=== PATIENT | female | born 1980 | race Caucasian/White ===

== ENCOUNTER 2017-02-14 22:02 | Emergency (ER) | payer OTHER ==
[~2017-02-14] VITALS: Ht 157.5 cm; Wt 81.6 kg
--- NOTE | 2017-02-14 23:40 | NUR ---
DR WILSON AT BEDSIDE FOR MSE
--- NOTE | 2017-02-15 00:03 | NUR ---
PT BACK FROM CT SCAN; NAD NOTED
[2017-02-15 00:09] LABS: BASOPHILS # (AUTO) 0.1 K/uL (0.0-8.0); BASOPHILS % (AUTO) 0.5 % (0.0-2.0); EOSINOPHILS # (AUTO) 0.1 K/uL (0.0-0.7); EOSINOPHILS % (AUTO) 0.9 % (0.0-7.0); HEMATOCRIT 40.5 % (37-47); HEMOGLOBIN 13.3 G/DL (12.0-16.0); LYMPHOCYTES # (AUTO) 4.1 K/UL (0.8-4.8); LYMPHOCYTES % (AUTO) 33.1 % (20.5-51.5); MEAN CORPUSCULAR HEMOGLOBIN 27.6 UUG (27.0-31.0); MEAN CORPUSCULAR HGB CONC 33 g/dL (32.0-37.0); MEAN CORPUSCULAR VOLUME 84.2 FL (81.0-99.0); MONOCYTES # (AUTO) 0.9 K/UL (0.1-1.30); MONOCYTES % (AUTO) 7.7 % (0.0-11.0); NEUTROPHILS # (AUTO) 7.1 K/UL (1.8-8.9); NEUTROPHILS % (AUTO) 57.8 % (38.5-71.5); PLATELET COUNT (AUTO) 209 K/UL (150-450); RED BLOOD CELL COUNT(AUTO) 4.81 MIL/UL (4.2-5.4); RED CELL DISTRIBUTION WIDTH 12.6 % (11.5-14.5); WHITE BLOOD COUNT (AUTO) 12.3 K/UL (4.0-11.2)
[2017-02-15 00:18] LABS: *BILIRUBIN,URIN NEGATIVE (NEGATIVE); *BLOOD, URINE 1+ (NEGATIVE); *CLARITY,URINE CLEAR (CLEAR); *COLOR,URINE STRAW (YELLOW); *KETONES,URINE TRACE (NEGATIVE); *PROTEIN,URINE NEGATIVE (NEGATIVE); *UROBILINOGEN,URINE 0.2 E.U./dl (NORMAL); LEUKOCYTE ESTERASE ,URINE NEGATIVE (NEGATIVE); NITRITE, URINE NEGATIVE (NEGATIVE); PH,URINE 5.5 (5.0-8.0); UGLUCOSE NEGATIVE (NEGATIVE)
[2017-02-15 00:22] LABS: ALBUMIN 3.7 g/dL (3.4-5.0); BILIRUBIN,DIRECT 0.1 mg/dL (0.0-0.2); BILIRUBIN,TOTAL 0.4 mg/dL (0.2-1.0); CREATININE 0.8 mg/dL (0.6-1.3); POTASSIUM 3.5 mmol/L (3.5-5.1)
[2017-02-15 00:23] LABS: BACTERIA,URINE NONE SEEN /HPF (NONE SEEN); RBC,URINE NONE SEEN /HPF (0-3); WBC,URINE 0-3 /HPF (0-3)
[2017-02-15 00:24] LABS: SQUAMOUS EPITHELIAL CELL,UR FEW /HPF (NONE SEEN)
[2017-02-15] MEDS ORDERED: KETOROLAC TROMETHAMINE 15 MG INJ IVP ONE (00:30)
[2017-02-15] MEDS ORDERED: ONDANSETRON IV *ER 4 MG/2 ML VIAL IV ONE (01:00)
[2017-02-15] MEDS ORDERED: KETOROLAC TROMETHAMINE 15 MG INJ ONE (01:01)
[2017-02-15] MEDS ORDERED: ONDANSETRON 4 MG/2 ML VIAL ONE (01:06)
--- NOTE | 2017-02-15 02:07 | NUR ---
DR WILSON AT BEDSIDE DISCUSSING RESULTS WITH PT
--- NOTE | 2017-02-15 02:31 | NUR ---
Patient discharged to home in stable conditon. Written and verbal after care instructions given. IV DC'D AND DRESSING APPLIED; PT ADVISED TO FOLLOW UP WITH PMD AND TO RETURN TO THE ED IF CONDITION WORSENS. Patient verbalizes understanding of instructions.
[2017-02-15 02:32] VITALS: BP 131/68
== END 2017-02-15 02:34 | disposition home or self-care (01) ==
LOC: ER 22:04
DX: K80.50 Calculus of bile duct without cholangitis or cholecystitis without obstruction (principal)
CPT/HCPCS: 36415; 70030-TC; 83690; 84703; 85025; A4663; J1885; J2405

== ENCOUNTER 2017-02-24 20:32 | Emergency (ER) | payer OTHER ==
[~2017-02-24] VITALS: Ht 160 cm; Wt 83.9 kg
[2017-02-24] MEDS ORDERED: SILVER SULFADIAZINE 1% CREAM 50 GM TP ONE (21:00)
[2017-02-24] MEDS ORDERED: OXYCODONE/APAP 5-325 MG TABLET PO ONE (21:00)
[2017-02-24] MEDS ORDERED: ONDANSETRON ODT 4 MG TAB.RAPDIS SL ONE (21:00)
--- NOTE | 2017-02-24 21:01 | NUR ---
Pharmacy Note: Medication not administered due to patient will be driving home. ERMD notified.
[2017-02-24] MEDS ORDERED: OXYCODONE/APAP 5-325 MG TABLET ONE (21:04)
[2017-02-24] MEDS ORDERED: ONDANSETRON ODT 4 MG TAB.RAPDIS ONE (21:04)
[2017-02-24] MEDS ORDERED: SILVER SULFADIAZINE 1% CREAM 25 GM TUBE TP ONE (21:04)
--- NOTE | 2017-02-24 21:55 | NUR ---
Patient discharged to home in stable conditon. Written and verbal after care instructions given. Patient verbalizes understanding of instructions.
== END 2017-02-24 22:01 | disposition home or self-care (01) ==
LOC: ER 20:35
DX: T25.022A Burn of unspecified degree of left foot, initial encounter (principal); S86.012A Strain of left Achilles tendon, initial encounter; X08.8XXA Exposure to other specified smoke, fire and flames, initial encounter; Y93.89 Activity, other specified; Y99.8 Other external cause status; Y92.89 Other specified places as the place of occurrence of the external cause
CPT/HCPCS: 16000; 29515; 73590; 73630; 99284; A4217; A4663; Q0162

== ENCOUNTER 2017-11-23 14:55 | Emergency (ER) | payer OTHER ==
[~2017-11-23] VITALS: Ht 160 cm; Wt 93.0 kg
--- NOTE | 2017-11-23 15:04 | NUR ---
PATIENT IS AWAKE AND ALERT. C/O ABDOMINAL PAIN AND NAUSEA.
[2017-11-23 15:37] LABS: *BILIRUBIN,URIN NEGATIVE (NEGATIVE); *BLOOD, URINE Trace-intact (NEGATIVE); *COLOR,URINE YELLOW (YELLOW); *KETONES,URINE NEGATIVE (NEGATIVE); *PROTEIN,URINE NEGATIVE (NEGATIVE); *UROBILINOGEN,URINE 0.2 E.U./dl (NORMAL); LEUKOCYTE ESTERASE ,URINE NEGATIVE (NEGATIVE); NITRITE, URINE NEGATIVE (NEGATIVE); PH,URINE 8.5 (5.0-8.0); UGLUCOSE NEGATIVE (NEGATIVE)
[2017-11-23 15:39] LABS: *URINE HCG, QUAL NEGATIVE (NEGATIVE)
[2017-11-23 15:40] LABS: *CLARITY,URINE SLIGHTLY HAZY (CLEAR)
[2017-11-23 15:43] LABS: BACTERIA,URINE FEW /HPF (NONE SEEN); MUCUS,URINE MODERATE /LPF (0-FEW); SQUAMOUS EPITHELIAL CELL,UR MANY /HPF (NONE SEEN); WBC,URINE 0-3 /HPF (0-3)
[2017-11-23] MEDS ORDERED: ONDANSETRON ODT 4 MG TAB.RAPDIS ONE (15:44)
[2017-11-23] MEDS: ONDANSETRON ODT 4 MG TAB.RAPDIS SL ONE (15:45)
[2017-11-23] MEDS ORDERED: KETOROLAC TROMETHAMINE 30 MG INJ ONE (16:05)
[2017-11-23] MEDS: KETOROLAC TROMETHAMINE 30 MG INJ IM ONE (16:06)
[2017-11-23 16:16] LABS: BASOPHILS % (AUTO) 0.5 % (0.0-2.0); EOSINOPHILS # (AUTO) 0.1 K/uL (0.0-0.7); EOSINOPHILS % (AUTO) 0.8 % (0.0-7.0); HEMATOCRIT 38.4 % (31.2-41.9); HEMOGLOBIN 12.8 g/dL (10.9-14.3); LYMPHOCYTES # (AUTO) 3.1 K/uL (20.0-40.0); LYMPHOCYTES % (AUTO) 34.8 % (20.5-51.5); MEAN CORPUSCULAR HEMOGLOBIN 28.1 uug (24.7-32.8); MEAN CORPUSCULAR HGB CONC 33 g/dL (32.3-35.6); MEAN CORPUSCULAR VOLUME 84.5 fL (75.5-95.3); MONOCYTES # (AUTO) 0.7 K/uL (2.0-10.0); MONOCYTES % (AUTO) 7.3 % (0.0-11.0); NEUTROPHILS # (AUTO) 5.1 K/uL (1.8-8.9); NEUTROPHILS % (AUTO) 56.6 % (38.5-71.5); PLATELET COUNT (AUTO) 168 K/uL (179-408); RED BLOOD CELL COUNT(AUTO) 4.54 MIL/uL (3.63-4.92)
[2017-11-23 16:18] LABS: CREATININE 0.8 mg/dL (0.6-1.3)
[2017-11-23 16:24] LABS: BILIRUBIN,DIRECT 0.1 mg/dL (0.0-0.2); BILIRUBIN,TOTAL 0.3 mg/dL (0.2-1.0); TOTAL PROTEIN, SERUM 7.4 g/dL (6.4-8.2)
--- NOTE | 2017-11-23 16:36 | NUR ---
PATIENT STATES NAUSEA HAS DIMINISHED AND PAIN HAS DIMINISHED SOMEWHAT.
[2017-11-23] MEDS: IBUPROFEN 800 MG TABLET PO ONE (17:11)
[2017-11-23] MEDS ORDERED: IBUPROFEN 400 MG TABLET ONE (17:13)
--- NOTE | 2017-11-23 17:13 | NUR ---
DC AND FOLLOW UP INSTRUCTIONS GIVEN AND EXPLAINED TO PATIENT WHO STATES HE UNDERSTANDS ALL INSTRUCTIONS.
== END 2017-11-23 17:16 | disposition home or self-care (01) ==
LOC: ER 15:00
DX: R10.11 Right upper quadrant pain (principal); R10.31 Right lower quadrant pain; N64.52 Nipple discharge
CPT/HCPCS: 36415; 76705; 76856; 80048; 80076; 81001; 83690; 84703 ×2; 85025; 99285; A4663; J1885; Q0162

== ENCOUNTER 2018-12-19 21:57 | Emergency (ER) | payer OTHER ==
--- NOTE | 2018-12-19 23:02 | NUR ---
LWBT, NO ANSWER AT 2200,2215,2230
== END 2018-12-19 22:30 | disposition left against medical advice (07) ==
LOC: ER 21:58
DX: Z53.21 Procedure and treatment not carried out due to patient leaving prior to being seen by health care provider (principal)

== ENCOUNTER 2019-02-10 18:21 | Emergency (ER) | payer OTHER ==
[~2019-02-10] VITALS: Ht 160 cm; Wt 95.3 kg
[2019-02-10] MEDS ORDERED: ACETAMINOPHEN 325 MG TABLET PO ONE (19:00)
[2019-02-10] MEDS ORDERED: IV NORMAL SALINE 1000 ML BAG IV ONE (19:15)
[2019-02-10] MEDS ORDERED: ACETAMINOPHEN ES 500 MG TABLET ONE (19:27)
[2019-02-10 19:36] LABS: BASOPHILS % (AUTO) 0.3 % (0.0-2.0); HEMATOCRIT 38.4 % (31.2-41.9); HEMOGLOBIN 12.6 g/dL (10.9-14.3); LYMPHOCYTES # (AUTO) 1.9 K/uL (20.0-40.0); LYMPHOCYTES % (AUTO) 12.6 % (20.5-51.5); MEAN CORPUSCULAR HGB CONC 33 g/dL (32.3-35.6); MEAN CORPUSCULAR VOLUME 85.2 fL (75.5-95.3); MONOCYTES % (AUTO) 6.6 % (0.0-11.0); NEUTROPHILS # (AUTO) 11.8 K/uL (1.8-8.9); NEUTROPHILS % (AUTO) 80.5 % (38.5-71.5); PLATELET COUNT (AUTO) 162 K/uL (179-408); RED BLOOD CELL COUNT(AUTO) 4.51 MIL/uL (3.63-4.92); WHITE BLOOD COUNT (AUTO) 14.7 K/uL (3.8-11.8)
[2019-02-10 19:38] LABS: CARBON DIOXIDE 26 mmol/L (21-32); CHLORIDE 104 mmol/L (98-107); CREATININE 0.9 mg/dL (0.6-1.3); GLUCOSE 99 mg/dL (74-106); POTASSIUM 3.8 mmol/L (3.5-5.1); UREA NITROGEN, BLOOD 12 mg/dL (7-18)
[2019-02-10 19:43] LABS: ALANINE AMINOTRANSFERASE 25 U/L (14-59); ALKALINE PHOSPHATASE 65 U/L (50-136); ASPARTATE AMINOTRANSFERASE 8 U/L (15-37); BILIRUBIN,DIRECT 0.1 mg/dL (0.0-0.2); BILIRUBIN,TOTAL 0.3 mg/dL (0.2-1.0); LIPASE 90 U/L (73-393); TOTAL PROTEIN, SERUM 7.7 g/dL (6.4-8.2)
[2019-02-10] MEDS ORDERED: CEFTRIAXONE 2 G in IV DEXTROSE 5% 100 ML IV ONE (19:45)
[2019-02-10] MEDS ORDERED: CEFTRIAXONE 1 G VIAL ONE (20:01)
[2019-02-10 20:02] LABS: *BILIRUBIN,URIN NEGATIVE (NEGATIVE); *COLOR,URINE YELLOW (YELLOW); *KETONES,URINE NEGATIVE (NEGATIVE); *UROBILINOGEN,URINE 0.2 E.U./dl (NORMAL); LEUKOCYTE ESTERASE ,URINE NEGATIVE (NEGATIVE); NITRITE, URINE NEGATIVE (NEGATIVE); PH,URINE 8.5 (5.0-8.0); UGLUCOSE NEGATIVE (NEGATIVE)
--- NOTE | 2019-02-10 20:06 | NUR ---
Pt refused Ct, Dr patterson aware.
[2019-02-10 20:11] LABS: *BLOOD, URINE TRACE (NEGATIVE); *CLARITY,URINE SLIGHTLY HAZY (CLEAR)
[2019-02-10 20:12] LABS: MUCUS,URINE FEW /LPF (0-FEW); SQUAMOUS EPITHELIAL CELL,UR MODERATE /HPF (NONE SEEN); WBC,URINE 0-3 /HPF (0-3)
[2019-02-10] MEDS ORDERED: KETOROLAC TROMETHAMINE 30 MG INJ IVP ONE (20:15)
[2019-02-10] MEDS ORDERED: KETOROLAC TROMETHAMINE 60 MG INJ IM ONE (20:17)
[2019-02-10] MEDS ORDERED: KETOROLAC TROMETHAMINE 30 MG INJ ONE (20:22)
--- NOTE | 2019-02-10 21:40 | NUR ---
Patient discharged to home in stable conditon. Written and verbal after care instructions given. Patient verbalizes understanding of instructions.
[2019-02-10 22:03] VITALS: BP 122/70
== END 2019-02-10 21:40 | disposition home or self-care (01) ==
LOC: ER 18:24
DX: J02.9 Acute pharyngitis, unspecified (principal); R10.31 Right lower quadrant pain
CPT/HCPCS: 36415; 80048; 80076; 81001; 83690; 84702; 85025; 85730; 96365; 96375; 99283; J0696; J1885; A4663; A9150; J7030

== ENCOUNTER 2019-09-21 12:20 | Emergency (ER) | payer OTHER ==
[~2019-09-21] VITALS: Ht 160 cm; Wt 95.3 kg
--- NOTE | 2019-09-21 12:40 | NUR ---
Dr Hughes at the bedside for MSE.
[2019-09-21] MEDS ORDERED: METOCLOPRAMIDE HCL 10 MG/2 ML VIAL IV ONE (12:45)
[2019-09-21] MEDS ORDERED: IV NORMAL SALINE 1000 ML BAG IV ONE (12:45)
[2019-09-21] MEDS ORDERED: diphenhydrAMINE 50 MG/1 ML VIAL IV ONE (12:45)
[2019-09-21] MEDS ORDERED: diphenhydrAMINE 50 MG/1 ML VIAL ONE (12:51)
[2019-09-21] MEDS ORDERED: METOCLOPRAMIDE HCL 10 MG/2 ML VIAL ONE (12:51)
[2019-09-21 13:14] LABS: BASOPHILS % (AUTO) 0.1 % (0.0-2.0); EOSINOPHILS # (AUTO) 0.1 K/uL (0.0-0.7); EOSINOPHILS % (AUTO) 1.3 % (0.0-7.0); HEMATOCRIT 40.2 % (31.2-41.9); HEMOGLOBIN 13.1 g/dL (10.9-14.3); LYMPHOCYTES # (AUTO) 2.4 K/uL (20.0-40.0); LYMPHOCYTES % (AUTO) 23.3 % (20.5-51.5); MEAN CORPUSCULAR HGB CONC 33 g/dL (32.3-35.6); MEAN CORPUSCULAR VOLUME 85.9 fL (75.5-95.3); MONOCYTES # (AUTO) 0.7 K/uL (2.0-10.0); MONOCYTES % (AUTO) 6.3 % (0.0-11.0); NEUTROPHILS # (AUTO) 7.2 K/uL (1.8-8.9); PLATELET COUNT (AUTO) 240 K/uL (179-408); RED BLOOD CELL COUNT(AUTO) 4.69 MIL/uL (3.63-4.92); WHITE BLOOD COUNT (AUTO) 10.5 K/uL (3.8-11.8)
[2019-09-21 13:24] LABS: CREATININE 0.7 mg/dL (0.6-1.3); POTASSIUM 3.9 mmol/L (3.5-5.1)
[2019-09-21 13:29] LABS: BILIRUBIN,DIRECT 0.1 mg/dL (0.0-0.2); BILIRUBIN,TOTAL 0.3 mg/dL (0.2-1.0); TOTAL PROTEIN, SERUM 8.1 g/dL (6.4-8.2)
--- NOTE | 2019-09-21 14:00 | NUR ---
Patient is resting comfortably in bed with eyes closed, NAD noted.
[2019-09-21] MEDS ORDERED: KETOROLAC TROMETHAMINE 30 MG INJ IVP ONE (14:30)
[2019-09-21] MEDS ORDERED: KETOROLAC TROMETHAMINE 30 MG INJ ONE (14:33)
--- NOTE | 2019-09-21 15:40 | NUR ---
IV removed. Catheter intact and site benign. Pressure and 4x4 gauze applied to site. No bleeding noted.
[2019-09-21 15:42] VITALS: BP 129/60
--- NOTE | 2019-09-21 15:43 | NUR ---
Patient discharged to home in stable conditon. Written and verbal after care instructions given. Patient verbalizes understanding of instructions.
== END 2019-09-21 15:43 | disposition home or self-care (01) ==
LOC: ER 12:22
DX: R51 Headache (principal); R11.10 Vomiting, unspecified; R19.7 Diarrhea, unspecified
CPT/HCPCS: 36415; 70450; 80048; 80076; 85025; 85651; 96361; 96374; 96375; 99284; J1200; J1885; J2765; A4663; J7030

== ENCOUNTER 2022-02-14 21:23 | Emergency (ER) | payer OTHER, MEDICAID ==
[~2022-02-14] VITALS: Ht 160 cm; Wt 104.3 kg
--- NOTE | 2022-02-14 21:23 | NUR ---
Patient walked into ER with steady gait c/o intermittent LLQ abdominal pain radiating to back x3days
[2022-02-14 21:53] LABS: *BILIRUBIN,URIN NEGATIVE (NEGATIVE); *BLOOD, URINE 2+ (NEGATIVE); *CLARITY,URINE CLEAR (CLEAR); *COLOR,URINE YELLOW (YELLOW); *KETONES,URINE NEGATIVE (NEGATIVE); LEUKOCYTE ESTERASE ,URINE NEGATIVE (NEGATIVE); NITRITE, URINE NEGATIVE (NEGATIVE); UGLUCOSE NEGATIVE (NEGATIVE)
[2022-02-14 21:58] LABS: *URINE HCG, QUAL NEGATIVE (NEGATIVE)
[2022-02-14 22:03] LABS: MEAN CORPUSCULAR HEMOGLOBIN 28.2 uug (24.7-32.8); MEAN CORPUSCULAR VOLUME 84.4 fL (75.5-95.3); PLATELET COUNT (AUTO) 205 K/uL (179-408)
[2022-02-14 22:15] LABS: CARBON DIOXIDE 25 mmol/L (21-32); CHLORIDE 105 mmol/L (98-107); CREATININE 0.9 mg/dL (0.6-1.3); GLUCOSE 105 mg/dL (74-106); POTASSIUM 3.6 mmol/L (3.5-5.1); UREA NITROGEN, BLOOD 27 mg/dL (7-18)
[2022-02-14 22:21] LABS: ALANINE AMINOTRANSFERASE 32 U/L (14-59); ALKALINE PHOSPHATASE 58 U/L (50-136); ASPARTATE AMINOTRANSFERASE 7 U/L (15-37); BILIRUBIN,DIRECT < 0.1 mg/dL (0.0-0.2); BILIRUBIN,TOTAL 0.2 mg/dL (0.2-1.0); LIPASE 95 U/L (73-393); TOTAL PROTEIN, SERUM 7.5 g/dL (6.4-8.2)
[2022-02-14 22:44] LABS: BACTERIA,URINE FEW /HPF (NONE SEEN); SQUAMOUS EPITHELIAL CELL,UR NONE SEEN /HPF (NONE SEEN); WBC,URINE 0-3 /HPF (0-3)
[2022-02-14] MEDS ORDERED: MORPHINE SULFATE 4 MG/1 ML DISP.SYRIN IV ONE (22:45)
[2022-02-14] MEDS ORDERED: AMOXICILLIN-CLAVUL 875-125MG TABLET PO ONE (22:45)
[2022-02-14] MEDS ORDERED: IV NS 1000 ML 1,000 ML IV ONE (22:45)
[2022-02-14] MEDS ORDERED: ONDANSETRON 4 MG/2 ML VIAL IV ONE (22:45)
[2022-02-14] MEDS ORDERED: ONDANSETRON 4 MG/2 ML VIAL ONE (22:51)
[2022-02-14] MEDS ORDERED: AMOXICILLIN-CLAVUL 875-125MG TABLET ONE (22:52)
[2022-02-14] MEDS ORDERED: MORPHINE SULFATE 4 MG/1 ML DISP.SYRIN ONE (22:52)
[2022-02-15] MEDS ORDERED: HYDR-4209 PO (00:30)
[2022-02-15] MEDS ORDERED: IBUP-1958 PO (00:30)
[2022-02-15] MEDS ORDERED: ONDA4TAB11 PO (00:30)
[2022-02-15] MEDS ORDERED: AMOX-430 PO (00:30)
--- NOTE | 2022-02-15 01:00 | NUR ---
Patient discharged to home in stable condition. Written and verbal after care instructions given. Patient verbalizes understanding of instructions. Stressed follow up or return to ER for worsening s/s. Patient is A/Ox4, able to walk with steady gait, not in distress. instructed the patient not to drive.
[2022-02-15 01:12] VITALS: BP 128/65
== END 2022-02-15 01:00 | disposition home or self-care (01) ==
LOC: ER 21:30
DX: R10.32 Left lower quadrant pain (principal); R10.31 Right lower quadrant pain; R19.7 Diarrhea, unspecified; M54.9 Dorsalgia, unspecified; D72.829 Elevated white blood cell count, unspecified
CPT/HCPCS: 36415; 80048; 80076; 81001; 83690; 84702; 84703; 85025; 96361; 96374; 96375; 99284; J2270; J2405; J7040; A4663

== ENCOUNTER 2022-05-10 20:49 | Emergency (ER) | payer OTHER ==
[~2022-05-10] VITALS: Ht 160 cm; Wt 104.3 kg
[~2022-05-10 20:49] MED LIST: AMOX-430 PO; HYDR-4209 PO; IBUP-1958 PO; ONDA4TAB11 PO
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
--- NOTE | 2022-05-10 22:14 | NUR ---
Dr. Tay on bedside for MSE.
[2022-05-10] MEDS ORDERED: OXYCODONE/APAP 5-325 MG TABLET ONE (22:25)
[2022-05-10] MEDS ORDERED: OXYCODONE/APAP 5-325 MG TABLET PO ONE (22:30)
[2022-05-10] MEDS ORDERED: OXYC-128 PO (23:28)
--- NOTE | 2022-05-10 23:30 | NUR ---
LEFT SHOULDER ARM SLING PLACED.
--- NOTE | 2022-05-11 00:08 | NUR ---
Patient discharged to home in stable condition. Written and verbal after care instructions given. Patient verbalizes understanding of instructions. Stressed follow up or return to ER for worsening s/s. Patient ambulated fr the ER with steady gait. All belongings with patient.
[2022-05-11 00:12] VITALS: BP 130/89
== END 2022-05-11 00:08 | disposition home or self-care (01) ==
LOC: ER 20:52
DX: M79.18 Myalgia, other site (principal); R03.0 Elevated blood-pressure reading, without diagnosis of hypertension
CPT/HCPCS: 71045; 72100; 73020; A4663

== ENCOUNTER 2024-03-23 21:55 | Emergency (ER) | payer OTHER ==
[~2024-03-23 21:55] MED LIST changes: +OXYC-128 PO
== END 2024-03-23 23:05 | disposition left against medical advice (07) ==
LOC: ER 22:01
DX: I10 Essential (primary) hypertension (principal); Z79.899 Other long term (current) drug therapy; Z53.21 Procedure and treatment not carried out due to patient leaving prior to being seen by health care provider

== ENCOUNTER 2024-04-08 22:18 | Emergency (ER) | payer OTHER ==
[~2024-04-08] VITALS: Ht 160 cm; Wt 108.0 kg
[2024-04-08 22:56] LABS: BASOPHILS % (AUTO) 0.2 % (0.0-2.0); EOSINOPHILS # (AUTO) 0.1 K/uL (0.0-0.7); EOSINOPHILS % (AUTO) 1.1 % (0.0-7.0); HEMATOCRIT 42.5 % (31.2-41.9); HEMOGLOBIN 13.5 g/dL (10.9-14.3); LYMPHOCYTES # (AUTO) 4.1 K/uL (0.8-4.8); LYMPHOCYTES % (AUTO) 33.6 % (20.5-51.5); MEAN CORPUSCULAR HGB CONC 32 g/dL (32.3-35.6); MEAN CORPUSCULAR VOLUME 84.8 fL (75.5-95.3); MONOCYTES # (AUTO) 0.8 K/uL (0.1-1.30); MONOCYTES % (AUTO) 6.5 % (0.0-11.0); NEUTROPHILS # (AUTO) 7.2 K/uL (1.8-8.9); NEUTROPHILS % (AUTO) 58.6 % (38.5-71.5); PLATELET COUNT (AUTO) 250 K/uL (179-408); RED BLOOD CELL COUNT(AUTO) 5.01 MIL/uL (3.63-4.92); RED CELL DISTRIBUTION WIDTH 14.3 % (12.3-17.7); WHITE BLOOD COUNT (AUTO) 12.2 K/uL (3.8-11.8)
[2024-04-08 22:58] LABS: CARBON DIOXIDE 23 mmol/L (21-32); CHLORIDE 104 mmol/L (98-107); CREATININE 0.6 mg/dL (0.6-1.3); GLUCOSE 94 mg/dL (74-106); POTASSIUM 4.2 mmol/L (3.5-5.1); SODIUM SERUM 140 mmol/L (136-145); UREA NITROGEN, BLOOD 17 mg/dL (7-18)
[2024-04-08] MEDS ORDERED: BETA15CR3 TP (23:16)
[2024-04-08 23:34] VITALS: BP 148/78; TEMP 97.8; O2SAT 98
[2024-04-09 13:51] LABS: BAND % (MANUAL) 8 % (0-10); NEUTROPHILS % (MANUAL) 55 % (42-75)
[2024-04-09 13:52] LABS: ANISOCYTOSIS 1+; EOSINOPHILS % (MANUAL) 2 % (0-8); LYMPHOCYTES % (MANUAL) 28 % (20-40); MONOCYTES % (MANUAL) 7 % (2-10); PLATELET ESTIMATE ADEQUATE
== END 2024-04-08 23:28 | disposition home or self-care (01) ==
LOC: ER 22:22
DX: R21 Rash and other nonspecific skin eruption (principal); R07.89 Other chest pain; Z79.1 Long term (current) use of non-steroidal anti-inflammatories (NSAID); Z79.52 Long term (current) use of systemic steroids
CPT/HCPCS: 36415; 70030-TC; 84484; 85025; 93005; A4606; A4663